=== PATIENT | female | born 1990 | race American Indian/Alaskan Native ===

== ENCOUNTER 2019-02-20 15:34 | Emergency (ER) | payer MEDICAID ==
[2019-02-20 15:34] VITALS: BMI 25.0
[2019-02-20 15:42] VITALS: BP 118/80; PULSE 94; RESP 19; TEMP 97.6; O2SAT 97
--- NOTE | 2019-02-20 16:09 | ED PDOC ---
HPI: Allergic Reaction Time Seen by Provider: 02/20/19 15:59 Chief Complaint (Nursing): Allergic Reaction Chief Complaint (Provider): Rash History Per: Patient History/Exam Limitations: no limitations Onset/Duration Of Symptoms: Days (x2) Current Symptoms Are (Timing): Still Present Additional Complaint(s): 28 y/o female, with no past medical history, presents to the ER with rash to her left arm which she noticed yesterday and to her right arm which she noticed today while taking off her clothes at the gym. Patient denies fever, pain, or being sick in the last few days. In the past few weeks, she has not used any new detergents, soaps, lotions, or antibiotic use. She also denies anyone at home with the same rash. Patient states she has only been taking Keyonna D for seasonal allergy symptoms. PMD: none provided Past Medical History Reviewed: Historical Data, Nursing Documentation, Vital Signs Vital Signs: Last Vital Signs Temp 97.6 F 02/20/19 15:39 Pulse 94 H 02/20/19 15:39 Resp 19 02/20/19 15:39 BP 118/80 02/20/19 15:39 Pulse Ox 97 02/20/19 15:39 Primary Care Provider: Non [facility] Provider, - Medical History PMH: No Chronic Diseases Denies: Chronic Kidney Disease - Surgical History Surgical History: No Surg Hx - Family History Family History: States: Unknown Family Hx - Immunization History Hx Tetanus Toxoid Vaccination: No Hx Influenza Vaccination: No Hx Pneumococcal Vaccination: No - Home Medications Home Medications: Ambulatory Orders Medication Instructions Recorded Naproxen 500 mg PO BID PRN #20 tablet 12/19/18 Ondansetron ODT [Zofran ODT] 4 mg PO DAILY PRN #20 odt 12/19/18 predniSONE [Prednisone] 60 mg PO DAILY #15 tab 02/20/19 - Allergies Allergies/Adverse Reactions: Allergies Allergy/AdvReac Type Severity Reaction Status Date / Time No Known Allergies Allergy Verified 12/19/18 16:29 Review of Systems ROS Statement: Except As Marked, All Systems Reviewed And Found Negative Constitutional: Negative for: Fever Skin: Positive for: Rash (to left and right arms) Physical Exam - Reviewed Nursing Documentation Reviewed: Yes Vital Signs Reviewed: Yes - Physical Exam Appears: Positive for: No Acute Distress Head Exam: Positive for: ATRAUMATIC, NORMOCEPHALIC Skin: Positive for: Normal Color, Warm, Dry Eye Exam: Positive for: Normal appearance ENT: Negative for: Tonsillar Swelling, Other (spots in mouth) Neck: Positive for: Normal, Painless ROM Cardiovascular/Chest: Positive for: Regular Rate, Rhythm Respiratory: Positive for: Normal Breath Sounds. Negative for: Wheezing, Respiratory Distress Extremity: Positive for: Normal ROM, Other (Red spots, slightly raised, non scaly, scattered, and different in size, to left and right arm. No pain on palpation.) - ECG O2 Sat by Pulse Oximetry: 97 (RA) Pulse Ox Interpretation: Normal Disposition - Clinical Impression Clinical Impression: Rash and nonspecific skin eruption - Patient ED Disposition Is Patient to be Admitted: No Counseled Patient/Family Regarding: Diagnosis, Need For Followup, Rx Given - Disposition Referrals: Non [facility] Provider, [Non-Staff] - More Shoemaker [Medical Doctor] - Disposition: Routine/Home Disposition Time: 16:08 Condition: GOOD Prescriptions: predniSONE [Prednisone] 60 mg PO DAILY #15 tab Instructions: Skin Rash Forms: [employer] ([employer]) - POA Present On Arrival: None Medical Decision Making Medical Decision Making: Initial Impression: Rash of unknown etiology Initial Plan: No further workup needed in the ER. Patient is stable for discharge. Patient given prescription for Prednisone 60mg daily and advised to follow up with dermatology. Patient has her own autopsy pathologist who she is going to see. Patient given autopsy pathologist referral in case she needs. ED return precautions given and patient verbally states she understands and agrees with plan. Scribe Attestation: Documented by Robin Nuñez acting as a scribe for Brittany Ramon NP. Provider Scribe Attestation: All medical record entries made by the Scribe were at my direction and personally dictated by me. I have reviewed the chart and agree that the record accurately reflects my personal performance of the history, physical exam, medical decision making, and the department course for this patient. I have also personally directed, reviewed, and agree with the discharge instructions and disposition.
== END 2019-02-20 16:48 | disposition home or self-care (01) ==
LOC: H.ER 15:34 → SUPCPDRO 15:34 → H.ER 16:48
DX: R21 Rash and other nonspecific skin eruption (principal)